=== PATIENT | female | born 1940 | race African-American/Black ===

== ENCOUNTER 2019-03-05 14:26 | Outpatient (CLI) | payer MEDICARE ==
--- NOTE | 2019-03-05 16:11 | RAD ---
LEFT FOOT THREE VIEWS: 03/05/19 No fracture, periosteal reaction, or area of bony destruction was seen. All bones appeared intact. A calcaneal spur was noted. IMPRESSION: No acute bony findings. POS: HOME
== END 2019-03-05 14:27 | disposition home or self-care (01) ==
LOC: BURRAD 14:26
PROVIDERS: ATTEND Nurse Practitioner Family
DX: L03.116 Cellulitis of left lower limb (principal); M13.872 Other specified arthritis, left ankle and foot; M79.672 Pain in left foot